=== PATIENT | male | born 1995 | race Hispanic/Latino ===

== ENCOUNTER 2022-03-07 19:39 | Emergency (ER) | payer OTHER ==
[~2022-03-07] VITALS: Ht 175.3 cm; Wt 84.0 kg
[2022-03-07 19:55] VITALS: BP 138/93
== END 2022-03-07 23:42 | disposition left against medical advice (07) | DRG 605 ==
LOC: ED 19:39
DX: S51.811A Laceration without foreign body of right forearm, initial encounter (principal); S52.611A Displaced fracture of right ulna styloid process, initial encounter for closed fracture; V43.62XA Car passenger injured in collision with other type car in traffic accident, initial encounter; S61.411A Laceration without foreign body of right hand, initial encounter; Z53.29 Procedure and treatment not carried out because of patient's decision for other reasons